=== PATIENT | female | born 1945 | race African-American/Black ===

== ENCOUNTER 2018-02-27 04:29 | Inpatient (IN) | payer MEDICARE, OTHER ==
[2018-02-27 04:37] LABS: POC GLUCOSE 149 mg/dL (70-99)
[2018-02-27] MEDS: ETOMIDATE 20 MG/10 ML VIAL. IV (04:40)
[2018-02-27] MEDS: SUCCINYLCHOLINE 200 MG/10 ML VIAL. IV (04:40)
[2018-02-27] MEDS ORDERED: PROPOFOL 50 ML IV (04:43)
[2018-02-27] MEDS: IPRATRPIUM/ALBUTEROL 0.5/2.5MG 3 ML NEBU. NEB ×4 (04:45→19:25)
[2018-02-27] MEDS: PROPOFOL 10 MG/ML (20ML) VIAL. IV (04:50)
[2018-02-27 05:00] LABS: BASO % 0 % (0-3); EOS % 0 % (0-3); HEMATOCRIT 43.4 % (36.0-47.0); LYMPH % 8 % (24-48); MEAN CORPUSCULAR HEMOGLOBIN 29 pg (25-35); MEAN CORPUSCULAR HGB CONC 30 g/dL (31-37); MEAN CORPUSCULAR VOLUME 98 fL (79-100); MONO # 0.4 x10^3/uL (0.0-1.1); MONO % 3 % (0-9); NEUT # 11.4 x10^3uL (1.8-7.7); NEUT % 89 % (31-73); PLATELET COUNT 185 x10^3/uL (140-400); RED BLOOD COUNT 4.44 x10^6/uL (3.50-5.40); RED CELL DISTRIBUTION WIDTH 15.7 % (11.5-14.5); WHITE BLOOD COUNT 12.9 x10^3/uL (4.0-11.0)
[2018-02-27 05:02] LABS: ADD MAN DIFF? YES
[2018-02-27 05:08] LABS: BILIRUBIN,URINE NEGATIVE (NEG); BLOOD UREA NITROGEN 15 mg/dL (7-20); BUN/CREATININE RATIO 19 (6-20); CALCIUM 8.9 mg/dL (8.5-10.1); CARBON DIOXIDE 40 mmol/L (21-32); CHLORIDE 105 mmol/L (98-107); CLARITY,URINE CLEAR; COLOR,URINE YELLOW; CREATININE 0.8 mg/dL (0.6-1.0); GFR 70.3; GLUCOSE 178 mg/dL (70-99); GLUCOSE,URINE NEGATIVE (NEG); NITRITE,URINE NEGATIVE (NEG); PH,URINE 5.5; POTASSIUM 4.8 mmol/L (3.5-5.1); PROTEIN,URINE 100 mg/dL (NEG-TRACE); SODIUM 143 mmol/L (136-145)
[2018-02-27 05:14] LABS: ALBUMIN 4.2 g/dL (3.4-5.0); ALBUMIN/GLOBULIN RATIO 0.8 (1.0-1.7); ALK PHOS 110 U/L (46-116); ALT (SGPT) 30 U/L (14-59); AST (SGOT) 29 U/L (15-37); TOTAL BILIRUBIN 1.2 mg/dL (0.2-1.0); TOTAL PROTEIN 9.5 g/dL (6.4-8.2)
[2018-02-27 05:15] LABS: AMORPHOUS SEDIMENT,UR PRESENT /HPF; BACTERIA,URINE 0 /HPF (0-FEW); RBC,URINE 0 /HPF (0-2); SQUAMOUS EPITHELIAL CELL,UR FEW /LPF; WBC,URINE OCC /HPF (0-4)
[2018-02-27 05:18] LABS: TROPONINI < 0.017 ng/mL (0.000-0.055)
[2018-02-27 05:19] LABS: NT-PRO BNP 289 pg/mL (0-124)
[2018-02-27] MEDS ORDERED: methylPREDNISolone SOD SUCC PF 125 MG/2 ML VIAL. IV (05:30)
[2018-02-27 05:36] LABS: BASE EXCESS COOX 8 mmol/L (-3-3); CARBON MONOXIDE 0.9 % (0.0-1.9); HCO3 COOX 37 mmol/L (21-28); METHEMOGLOBIN 0.5 % (0.0-1.9); PO2 COOX 265 mmHg (65-108); SAT O2 COOX 99 % (92-99); TOTAL HEMOGLOBIN 13.3 g/dL
[2018-02-27 05:39] LABS: % LYMPHS 12 % (24-48); % MONOS 1 % (0-10); % SEGS 87 % (35-66); PLT ESTIMATE ADEQUATE (ADEQUATE)
[2018-02-27 05:45] LABS: PCO2 COOX 76 mmHg (35-46)
[2018-02-27] MEDS ORDERED: ONDANSETRON PF 4 MG/2 ML VIAL. IV (05:45)
[2018-02-27] MEDS: IV NORMAL SALINE 1000ML BAG 1,000 ML IV (06:00)
[2018-02-27] MEDS: MIDAZOLAM 100mg/100ml NS BAG 100 ML IV (06:09)
[2018-02-27] MEDS: methylPREDNISolone SOD SUCC PF 125 MG/2 ML VIAL. IV ×3 (06:17→21:34)
[2018-02-27] MEDS ORDERED: ETOMIDATE 20 MG/10 ML VIAL. IV (07:00)
[2018-02-27] MEDS ORDERED: MIDAZOLAM HCL/PF 5 MG/5 ML VIAL. (07:00)
[2018-02-27] MEDS ORDERED: SUCCINYLCHOLINE 200 MG/10 ML VIAL. (07:01)
[2018-02-27 09:13] LABS: BASE EXCESS ABG 9 mmol/L (-3-3); HCO3 ABG 33 mmol/L (21-28); PCO2 ABG 39 mmHg (35-46); PH ABG 7.54 (7.35-7.45); PO2 ABG 72 mmHg (65-108); SAT O2 ABG 97 % (92-99)
[2018-02-27 09:17] LABS: FIO2 ABG 60
[2018-02-27 09:27] LABS: LACTIC ACID 2.5 mmol/L (0.4-2.0)
[2018-02-27] MEDS: PIPERACILLIN/TAZOBACTAM 4.5 GM in IV NORMAL SALINE 100ML 100 ML IV ×3 (11:12→23:51)
[2018-02-27] MEDS: PANTOPRAZOLE IV PUSH 40 MG VIAL. IVP (11:15)
[2018-02-27] MEDS: amLODIPine BESYLATE 5 MG TABLET PO (11:18)
[2018-02-27 13:08] LABS: PROCALCITONIN < 0.10 ng/mL (0.00-0.10)
[2018-02-27 13:44] LABS: MYCOPLASMA PATIENT NEGATIVE (NEGATIVE); NEGATIVE OBC MYCO NEG; POSITIVE OBC MYCO POS
[2018-02-27 14:58] LABS: LACTIC ACID < 0.3 mmol/L (0.4-2.0)
[2018-02-27 19:09] LABS: MRSA BY PCR Negative (Negative)
[2018-02-27] MEDS: CHLORHEXIDINE 0.12% 15 ML MOUTHWASH. MM (20:49)
[2018-02-28] MEDS: MIDAZOLAM 100mg/100ml NS BAG 100 ML IV (04:08)
[2018-02-28 05:43] LABS: ADD MAN DIFF? NO
[2018-02-28 05:50] LABS: BASO % 0 % (0-3); EOS % 0 % (0-3); HEMATOCRIT 37.9 % (36.0-47.0); HEMOGLOBIN 11.9 g/dL (12.0-15.5); LYMPH # 0.5 x10^3/uL (1.0-4.8); LYMPH % 5 % (24-48); MEAN CORPUSCULAR HEMOGLOBIN 29 pg (25-35); MEAN CORPUSCULAR HGB CONC 31 g/dL (31-37); MEAN CORPUSCULAR VOLUME 93 fL (79-100); MONO # 0.2 x10^3/uL (0.0-1.1); MONO % 2 % (0-9); NEUT # 8.7 x10^3uL (1.8-7.7); NEUT % 92 % (31-73); PLATELET COUNT 135 x10^3/uL (140-400); RED BLOOD COUNT 4.08 x10^6/uL (3.50-5.40); RED CELL DISTRIBUTION WIDTH 14.4 % (11.5-14.5); WHITE BLOOD COUNT 9.4 x10^3/uL (4.0-11.0)
[2018-02-28] MEDS: PIPERACILLIN/TAZOBACTAM 4.5 GM in IV NORMAL SALINE 100ML 100 ML IV ×4 (05:53→23:36)
[2018-02-28] MEDS: methylPREDNISolone SOD SUCC PF 125 MG/2 ML VIAL. IV ×3 (05:53→22:05)
[2018-02-28 06:21] LABS: ALBUMIN 3.1 g/dL (3.4-5.0); ALBUMIN/GLOBULIN RATIO 0.8 (1.0-1.7); ALK PHOS 78 U/L (46-116); ALT (SGPT) 23 U/L (14-59); ANION GAP 6 (6-14); AST (SGOT) 26 U/L (15-37); BLOOD UREA NITROGEN 20 mg/dL (7-20); BUN/CREATININE RATIO 15 (6-20); CALCIUM 8.7 mg/dL (8.5-10.1); CARBON DIOXIDE 32 mmol/L (21-32); CHLORIDE 105 mmol/L (98-107); CREATININE 1.3 mg/dL (0.6-1.0); GFR 48.6; GLUCOSE 227 mg/dL (70-99); POTASSIUM 3.6 mmol/L (3.5-5.1); SODIUM 143 mmol/L (136-145); TOTAL BILIRUBIN 2.1 mg/dL (0.2-1.0); TOTAL PROTEIN 6.8 g/dL (6.4-8.2)
[2018-02-28] MEDS: PANTOPRAZOLE IV PUSH 40 MG VIAL. IVP (07:49)
[2018-02-28] MEDS: CHLORHEXIDINE 0.12% 15 ML MOUTHWASH. MM ×2 (08:01→21:35)
[2018-02-28] MEDS: amLODIPine BESYLATE 10 MG TABLET PO (08:02)
[2018-02-28] MEDS: IPRATRPIUM/ALBUTEROL 0.5/2.5MG 3 ML NEBU. NEB ×4 (08:37→20:06)
[2018-02-28 08:57] LABS: BASE EXCESS ABG 7 mmol/L (-3-3); HCO3 ABG 32 mmol/L (21-28); PCO2 ABG 44 mmHg (35-46); PH ABG 7.47 (7.35-7.45); PO2 ABG 84 mmHg (65-108); SAT O2 ABG 97 % (92-99)
[2018-02-28 08:58] LABS: FIO2 ABG 40
[2018-02-28 09:58] LABS: SPECIMEN SOURCE Urine (.); STREP PNEUMO ANTIGEN Negative (Negative)
[2018-02-28] MEDS: FUROSEMIDE 40 MG/4 ML VIAL. IVP (11:12)
[2018-02-28 12:17] LABS: LEGIONELLA AG UR Negative (Negative)
[2018-02-28] MEDS: PROPOFOL 100 ML IV ×2 (13:22→17:05)
[2018-02-28] MEDS: INSULIN LISPRO 300 UNITS/3 ML INSULN.PEN. SQ ×3 (14:00→23:37)
[2018-02-28] MEDS ORDERED: DEXTROSE 50% 25 GM / 50ML DISP.SYRIN. IV (14:00)
[2018-02-28 14:37] LABS: POC GLUCOSE 143 mg/dL (70-99)
[2018-02-28 17:55] LABS: POC GLUCOSE 187 mg/dL (70-99)
[2018-02-28 23:37] LABS: POC GLUCOSE 228 mg/dL (70-99)
[2018-03-01 04:39] LABS: ADD MAN DIFF? NO
[2018-03-01 04:50] LABS: BASO % 0 % (0-3); EOS % 0 % (0-3); HEMOGLOBIN 12.2 g/dL (12.0-15.5); LYMPH # 0.5 x10^3/uL (1.0-4.8); LYMPH % 4 % (24-48); MEAN CORPUSCULAR HEMOGLOBIN 30 pg (25-35); MEAN CORPUSCULAR HGB CONC 32 g/dL (31-37); MEAN CORPUSCULAR VOLUME 93 fL (79-100); MONO # 0.4 x10^3/uL (0.0-1.1); MONO % 3 % (0-9); NEUT # 9.9 x10^3uL (1.8-7.7); NEUT % 92 % (31-73); PLATELET COUNT 140 x10^3/uL (140-400); RED BLOOD COUNT 4.11 x10^6/uL (3.50-5.40); RED CELL DISTRIBUTION WIDTH 14.8 % (11.5-14.5); WHITE BLOOD COUNT 10.7 x10^3/uL (4.0-11.0)
[2018-03-01] MEDS: methylPREDNISolone SOD SUCC PF 125 MG/2 ML VIAL. IV ×3 (05:09→21:22)
[2018-03-01] MEDS: PIPERACILLIN/TAZOBACTAM 4.5 GM in IV NORMAL SALINE 100ML 100 ML IV ×3 (05:09→17:27)
[2018-03-01] MEDS: INSULIN LISPRO 300 UNITS/3 ML INSULN.PEN. SQ ×3 (05:13→17:28)
[2018-03-01 05:25] LABS: ANION GAP 7 (6-14); BLOOD UREA NITROGEN 27 mg/dL (7-20); CALCIUM 8.9 mg/dL (8.5-10.1); CARBON DIOXIDE 32 mmol/L (21-32); CHLORIDE 103 mmol/L (98-107); CREATININE 1.5 mg/dL (0.6-1.0); GFR 41.2; GLUCOSE 244 mg/dL (70-99); POTASSIUM 3.2 mmol/L (3.5-5.1); SODIUM 142 mmol/L (136-145)
[2018-03-01] MEDS: IPRATRPIUM/ALBUTEROL 0.5/2.5MG 3 ML NEBU. NEB ×4 (07:39→19:42)
[2018-03-01 07:42] LABS: BASE EXCESS ABG 6 mmol/L (-3-3); HCO3 ABG 31 mmol/L (21-28); PCO2 ABG 45 mmHg (35-46); PH ABG 7.46 (7.35-7.45); PO2 ABG 92 mmHg (65-108); SAT O2 ABG 97 % (92-99)
[2018-03-01] MEDS: CHLORHEXIDINE 0.12% 15 ML MOUTHWASH. MM ×2 (08:06→21:22)
[2018-03-01] MEDS: PANTOPRAZOLE IV PUSH 40 MG VIAL. IVP (08:07)
[2018-03-01] MEDS: amLODIPine BESYLATE 10 MG TABLET PO (08:07)
[2018-03-01] MEDS: PROPOFOL 100 ML IV ×3 (08:56→18:51)
[2018-03-01 09:18] LABS: FIO2 ABG 40
[2018-03-01] MEDS ORDERED: POTASSIUM CHLORIDE 20MEQ 50 ML IV (10:00)
[2018-03-01] MEDS: POTASSIUM CHLORIDE 20 MEQ/15 ML ORAL LIQUID. PEG (10:08)
[2018-03-01 11:31] LABS: POC GLUCOSE 179 mg/dL (70-99)
[2018-03-01] MEDS: FUROSEMIDE 40 MG/4 ML VIAL. IVP (12:26)
[2018-03-01 13:15] LABS: POC GLUCOSE 186 mg/dL (70-99)
[2018-03-01 13:25] LABS: BASE EXCESS ABG 6 mmol/L (-3-3); HCO3 ABG 35 mmol/L (21-28); PH ABG 7.32 (7.35-7.45); PO2 ABG 73 mmHg (65-108); SAT O2 ABG 93 % (92-99)
[2018-03-01 13:28] LABS: PCO2 ABG 69 mmHg (35-46)
[2018-03-01 13:29] LABS: FIO2 ABG 40%
[2018-03-01 17:27] LABS: POC GLUCOSE 192 mg/dL (70-99)
[2018-03-02] MEDS: PIPERACILLIN/TAZOBACTAM 4.5 GM in IV NORMAL SALINE 100ML 100 ML IV ×5 (00:27→23:10)
[2018-03-02] MEDS: INSULIN LISPRO 300 UNITS/3 ML INSULN.PEN. SQ ×5 (00:28→23:10)
[2018-03-02] MEDS: PROPOFOL 100 ML IV ×4 (00:31→13:55)
[2018-03-02 00:37] LABS: POC GLUCOSE 207 mg/dL (70-99)
[2018-03-02 04:28] LABS: ADD MAN DIFF? NO
[2018-03-02 04:36] LABS: BASO % 0 % (0-3); EOS % 0 % (0-3); HEMATOCRIT 42.2 % (36.0-47.0); HEMOGLOBIN 13.4 g/dL (12.0-15.5); LYMPH # 0.4 x10^3/uL (1.0-4.8); LYMPH % 4 % (24-48); MEAN CORPUSCULAR HEMOGLOBIN 29 pg (25-35); MEAN CORPUSCULAR HGB CONC 32 g/dL (31-37); MEAN CORPUSCULAR VOLUME 92 fL (79-100); MONO # 0.5 x10^3/uL (0.0-1.1); MONO % 4 % (0-9); NEUT # 10.6 x10^3uL (1.8-7.7); NEUT % 92 % (31-73); PLATELET COUNT 154 x10^3/uL (140-400); RED BLOOD COUNT 4.58 x10^6/uL (3.50-5.40); RED CELL DISTRIBUTION WIDTH 15.3 % (11.5-14.5); WHITE BLOOD COUNT 11.5 x10^3/uL (4.0-11.0)
[2018-03-02 04:50] LABS: ALBUMIN 3.2 g/dL (3.4-5.0); ALBUMIN/GLOBULIN RATIO 0.8 (1.0-1.7); ALK PHOS 78 U/L (46-116); ALT (SGPT) 21 U/L (14-59); ANION GAP 7 (6-14); AST (SGOT) 18 U/L (15-37); BLOOD UREA NITROGEN 33 mg/dL (7-20); BUN/CREATININE RATIO 24 (6-20); CARBON DIOXIDE 34 mmol/L (21-32); CHLORIDE 103 mmol/L (98-107); CREATININE 1.4 mg/dL (0.6-1.0); GFR 44.6; GLUCOSE 223 mg/dL (70-99); POTASSIUM 3.1 mmol/L (3.5-5.1); SODIUM 144 mmol/L (136-145); TOTAL PROTEIN 7.2 g/dL (6.4-8.2)
[2018-03-02] MEDS: methylPREDNISolone SOD SUCC PF 125 MG/2 ML VIAL. IV (06:01)
[2018-03-02] MEDS: IPRATRPIUM/ALBUTEROL 0.5/2.5MG 3 ML NEBU. NEB ×4 (07:25→20:00)
[2018-03-02] MEDS: PANTOPRAZOLE IV PUSH 40 MG VIAL. IVP (07:56)
[2018-03-02] MEDS: amLODIPine BESYLATE 10 MG TABLET PO (07:56)
[2018-03-02] MEDS: POTASSIUM CHLORIDE 20 MEQ/15 ML ORAL LIQUID. PEG ×2 (07:56→15:29)
[2018-03-02] MEDS: CHLORHEXIDINE 0.12% 15 ML MOUTHWASH. MM ×2 (07:58→20:25)
[2018-03-02 08:16] LABS: MAGNESIUM 2.3 mg/dL (1.8-2.4)
[2018-03-02 08:23] LABS: POC GLUCOSE 162 mg/dL (70-99)
[2018-03-02 08:48] LABS: BASE EXCESS ABG 6 mmol/L (-3-3); FIO2 ABG 40; HCO3 ABG 30 mmol/L (21-28); PCO2 ABG 41 mmHg (35-46); PH ABG 7.48 (7.35-7.45); PO2 ABG 85 mmHg (65-108); SAT O2 ABG 96 % (92-99)
[2018-03-02 09:39] LABS: BASE EXCESS ABG 5 mmol/L (-3-3); HCO3 ABG 34 mmol/L (21-28); PH ABG 7.32 (7.35-7.45); PO2 ABG 68 mmHg (65-108); SAT O2 ABG 91 % (92-99)
[2018-03-02 10:55] LABS: FIO2 ABG 40; PCO2 ABG 68 mmHg (35-46)
[2018-03-02 12:28] LABS: POC GLUCOSE 186 mg/dL (70-99)
[2018-03-02] MEDS: FUROSEMIDE 40 MG/4 ML VIAL. IVP (13:17)
[2018-03-02] MEDS: methylPREDNISolone SOD SUCC PF 40 MG/ML VIAL. IV ×2 (13:18→21:28)
[2018-03-02 15:05] LABS: BASE EXCESS ABG 5 mmol/L (-3-3); HCO3 ABG 32 mmol/L (21-28); PCO2 ABG 52 mmHg (35-46); PO2 ABG 88 mmHg (65-108); SAT O2 ABG 97 % (92-99)
[2018-03-02 15:13] LABS: FIO2 ABG 40
[2018-03-02] MEDS: fentaNYL PF VIAL 100 MCG/2 ML VIAL IV ×2 (15:57→21:46)
[2018-03-02] MEDS ORDERED: fentaNYL PF VIAL 100 MCG/2 ML VIAL IV (16:00)
[2018-03-02 16:34] LABS: POC GLUCOSE 146 mg/dL (70-99)
[2018-03-02] MEDS: hydrALAZINE 20 MG/ML VIAL. IVP (23:10)
[2018-03-02 23:15] LABS: POC GLUCOSE 147 mg/dL (70-99)
[2018-03-03] MEDS: methylPREDNISolone SOD SUCC PF 40 MG/ML VIAL. IV ×3 (05:41→21:40)
[2018-03-03] MEDS: PIPERACILLIN/TAZOBACTAM 4.5 GM in IV NORMAL SALINE 100ML 100 ML IV ×3 (05:42→17:45)
[2018-03-03] MEDS: INSULIN LISPRO 300 UNITS/3 ML INSULN.PEN. SQ ×3 (05:45→17:46)
[2018-03-03 05:52] LABS: POC GLUCOSE 151 mg/dL (70-99)
[2018-03-03] MEDS: fentaNYL PF VIAL 100 MCG/2 ML VIAL IV (05:53)
[2018-03-03] MEDS: CHLORHEXIDINE 0.12% 15 ML MOUTHWASH. MM (07:21)
[2018-03-03] MEDS: hydrALAZINE 20 MG/ML VIAL. IVP ×2 (07:41→13:11)
[2018-03-03] MEDS: IPRATRPIUM/ALBUTEROL 0.5/2.5MG 3 ML NEBU. NEB ×4 (07:56→20:24)
[2018-03-03] MEDS: amLODIPine BESYLATE 10 MG TABLET PO (08:10)
[2018-03-03] MEDS: PANTOPRAZOLE IV PUSH 40 MG VIAL. IVP (08:10)
[2018-03-03 11:36] LABS: ANION GAP 8 (6-14); BLOOD UREA NITROGEN 41 mg/dL (7-20); CALCIUM 8.5 mg/dL (8.5-10.1); CARBON DIOXIDE 37 mmol/L (21-32); CHLORIDE 102 mmol/L (98-107); CREATININE 1.3 mg/dL (0.6-1.0); GFR 48.6; GLUCOSE 175 mg/dL (70-99); MAGNESIUM 2.5 mg/dL (1.8-2.4); POTASSIUM 3.2 mmol/L (3.5-5.1); SODIUM 147 mmol/L (136-145)
[2018-03-03] MEDS: POTASSIUM CHLORIDE 20 MEQ/15 ML ORAL LIQUID. PEG (13:45)
[2018-03-03 17:48] LABS: POC GLUCOSE 148 mg/dL (70-99)
[2018-03-03] MEDS: ONDANSETRON PF 4 MG/2 ML VIAL. IV ×2 (18:09→22:35)
[2018-03-03] MEDS: LACTOBACILLUS RHAMNOSUS GG 1 CAPSULE. PO (21:00)
[2018-03-04] MEDS: PIPERACILLIN/TAZOBACTAM 4.5 GM in IV NORMAL SALINE 100ML 100 ML IV ×4 (00:21→18:02)
[2018-03-04 00:30] LABS: POC GLUCOSE 182 mg/dL (70-99)
[2018-03-04] MEDS: IV NORMAL SALINE 1000ML BAG 1,000 ML IV ×2 (02:00→09:08)
[2018-03-04 05:42] LABS: ANION GAP 6 (6-14); BLOOD UREA NITROGEN 59 mg/dL (7-20); CALCIUM 8.3 mg/dL (8.5-10.1); CARBON DIOXIDE 37 mmol/L (21-32); CHLORIDE 104 mmol/L (98-107); CREATININE 1.6 mg/dL (0.6-1.0); GFR 38.2; GLUCOSE 175 mg/dL (70-99); POTASSIUM 3.7 mmol/L (3.5-5.1); SODIUM 147 mmol/L (136-145)
[2018-03-04] MEDS: INSULIN LISPRO 300 UNITS/3 ML INSULN.PEN. SQ ×4 (06:00→17:40)
[2018-03-04 06:26] LABS: POC GLUCOSE 118 mg/dL (70-99)
[2018-03-04] MEDS: methylPREDNISolone SOD SUCC PF 40 MG/ML VIAL. IV ×3 (06:27→22:58)
[2018-03-04] MEDS: amLODIPine BESYLATE 10 MG TABLET PO (07:10)
[2018-03-04] MEDS: LACTOBACILLUS RHAMNOSUS GG 1 CAPSULE. PO ×2 (07:10→21:51)
[2018-03-04] MEDS: IPRATRPIUM/ALBUTEROL 0.5/2.5MG 3 ML NEBU. NEB ×5 (07:47→20:19)
[2018-03-04 08:02] LABS: BASE EXCESS ABG 8 mmol/L (-3-3); HCO3 ABG 44 mmol/L (21-28); PO2 ABG 125 mmHg (65-108); SAT O2 ABG 98 % (92-99)
[2018-03-04 08:12] LABS: PH ABG 7.11 (7.35-7.45)
[2018-03-04 08:14] LABS: FIO2 ABG 70; PCO2 ABG 140 mmHg (35-46)
[2018-03-04] MEDS: PANTOPRAZOLE IV PUSH 40 MG VIAL. IVP (09:08)
[2018-03-04 10:45] LABS: BASE EXCESS ABG 3 mmol/L (-3-3); HCO3 ABG 33 mmol/L (21-28); PH ABG 7.25 (7.35-7.45); PO2 ABG 79 mmHg (65-108); SAT O2 ABG 95 % (92-99)
[2018-03-04 10:49] LABS: FIO2 ABG 40; PCO2 ABG 76 mmHg (35-46)
[2018-03-04] MEDS: AMINO AC 3%/ELECTROLYTE/GLYCER 1,000 ML IV ×2 (11:00→23:30)
[2018-03-04] MEDS: IV 1/2 NORMAL SALINE 1,000 ML IV (11:00)
[2018-03-04 12:57] LABS: POC GLUCOSE 127 mg/dL (70-99)
[2018-03-04 16:09] LABS: ANION GAP 7 (6-14); BLOOD UREA NITROGEN 71 mg/dL (7-20); CALCIUM 8.1 mg/dL (8.5-10.1); CARBON DIOXIDE 36 mmol/L (21-32); CHLORIDE 105 mmol/L (98-107); CREATININE 1.9 mg/dL (0.6-1.0); GFR 31.4; GLUCOSE 136 mg/dL (70-99); SODIUM 148 mmol/L (136-145)
[2018-03-04] MEDS: ONDANSETRON PF 4 MG/2 ML VIAL. IV (16:27)
[2018-03-04] MEDS: IV DEXTROSE 5% 1,000 ML IV (18:02)
[2018-03-04 20:42] LABS: BASE EXCESS ABG 8 mmol/L (-3-3); HCO3 ABG 36 mmol/L (21-28); PO2 ABG 75 mmHg (65-108); SAT O2 ABG 95 % (92-99)
[2018-03-04 20:43] LABS: FIO2 ABG 40; PCO2 ABG 60 mmHg (35-46); PH ABG 7.39 (7.35-7.45)
[2018-03-05] MEDS: ONDANSETRON PF 4 MG/2 ML VIAL. IV (00:08)
[2018-03-05] MEDS: PIPERACILLIN/TAZOBACTAM 4.5 GM in IV NORMAL SALINE 100ML 100 ML IV ×4 (00:15→16:55)
[2018-03-05 00:39] LABS: POC GLUCOSE 149 mg/dL (70-99)
[2018-03-05] MEDS: INSULIN LISPRO 300 UNITS/3 ML INSULN.PEN. SQ ×4 (05:59→17:47)
[2018-03-05 06:01] LABS: POC GLUCOSE 147 mg/dL (70-99)
[2018-03-05] MEDS: methylPREDNISolone SOD SUCC PF 40 MG/ML VIAL. IV ×3 (06:22→22:39)
[2018-03-05] MEDS: IV DEXTROSE 5% 1,000 ML IV ×2 (07:53→20:40)
[2018-03-05] MEDS: PANTOPRAZOLE IV PUSH 40 MG VIAL. IVP (07:53)
[2018-03-05] MEDS: amLODIPine BESYLATE 10 MG TABLET PO (09:00)
[2018-03-05] MEDS: LACTOBACILLUS RHAMNOSUS GG 1 CAPSULE. PO ×2 (09:00→22:40)
[2018-03-05] MEDS: IPRATRPIUM/ALBUTEROL 0.5/2.5MG 3 ML NEBU. NEB ×4 (09:01→19:58)
[2018-03-05 09:19] LABS: BASE EXCESS ABG 9 mmol/L (-3-3); HCO3 ABG 38 mmol/L (21-28); PH ABG 7.33 (7.35-7.45); PO2 ABG 82 mmHg (65-108); SAT O2 ABG 96 % (92-99)
[2018-03-05 09:23] LABS: FIO2 ABG 40; PCO2 ABG 75 mmHg (35-46)
[2018-03-05] MEDS: fentaNYL PF VIAL 100 MCG/2 ML VIAL IV ×2 (09:50→16:56)
[2018-03-05] MEDS: AMINO AC 3%/ELECTROLYTE/GLYCER 1,000 ML IV (11:52)
[2018-03-05 11:55] LABS: POC GLUCOSE 162 mg/dL (70-99)
[2018-03-05 12:11] LABS: HEMATOCRIT 48.3 % (36.0-47.0); HEMOGLOBIN 15.1 g/dL (12.0-15.5); MEAN CORPUSCULAR HEMOGLOBIN 29 pg (25-35); MEAN CORPUSCULAR HGB CONC 31 g/dL (31-37); MEAN CORPUSCULAR VOLUME 94 fL (79-100); PLATELET COUNT 166 x10^3/uL (140-400); RED BLOOD COUNT 5.15 x10^6/uL (3.50-5.40); RED CELL DISTRIBUTION WIDTH 15.4 % (11.5-14.5); WHITE BLOOD COUNT 21.1 x10^3/uL (4.0-11.0)
[2018-03-05 12:33] LABS: ANION GAP 4 (6-14); BLOOD UREA NITROGEN 68 mg/dL (7-20); CALCIUM 7.8 mg/dL (8.5-10.1); CARBON DIOXIDE 41 mmol/L (21-32); CHLORIDE 105 mmol/L (98-107); CREATININE 1.9 mg/dL (0.6-1.0); GFR 31.4; GLUCOSE 170 mg/dL (70-99); POTASSIUM 3.6 mmol/L (3.5-5.1); SODIUM 150 mmol/L (136-145)
[2018-03-05 17:33] LABS: POC GLUCOSE 106 mg/dL (70-99)
[2018-03-06] MEDS: ALBUTEROL SULFATE 2.5 MG/3 ML NEBU. NEB (01:15)
[2018-03-06 01:38] LABS: BASE EXCESS ABG 5 mmol/L (-3-3); HCO3 ABG 33 mmol/L (21-28); PO2 ABG 69 mmHg (65-108); SAT O2 ABG 93 % (92-99)
[2018-03-06] MEDS: MIDAZOLAM 100mg/100ml NS BAG 100 ML IV ×2 (01:40→12:39)
[2018-03-06] MEDS: PIPERACILLIN/TAZOBACTAM 4.5 GM in IV NORMAL SALINE 100ML 100 ML IV ×2 (02:40→06:03)
[2018-03-06] MEDS: AMINO AC 3%/ELECTROLYTE/GLYCER 1,000 ML IV ×3 (02:40→21:40)
[2018-03-06 02:51] LABS: POC GLUCOSE 179 mg/dL (70-99)
[2018-03-06 03:36] LABS: FIO2 ABG 60; PCO2 ABG 69 mmHg (35-46)
[2018-03-06] MEDS: methylPREDNISolone SOD SUCC PF 40 MG/ML VIAL. IV ×3 (05:59→21:40)
[2018-03-06] MEDS: INSULIN LISPRO 300 UNITS/3 ML INSULN.PEN. SQ ×4 (06:00→18:00)
[2018-03-06 06:15] LABS: POC GLUCOSE 122 mg/dL (70-99)
[2018-03-06] MEDS: IPRATRPIUM/ALBUTEROL 0.5/2.5MG 3 ML NEBU. NEB ×4 (07:14→19:27)
[2018-03-06] MEDS: CHLORHEXIDINE 0.12% 15 ML MOUTHWASH. MM ×2 (08:13→21:18)
[2018-03-06] MEDS: IV DEXTROSE 5% 1,000 ML IV ×2 (08:14→21:40)
[2018-03-06] MEDS: PANTOPRAZOLE IV PUSH 40 MG VIAL. IVP (08:14)
[2018-03-06] MEDS: LACTOBACILLUS RHAMNOSUS GG 1 CAPSULE. PO ×2 (08:14→21:00)
[2018-03-06] MEDS: amLODIPine BESYLATE 10 MG TABLET PO (08:14)
[2018-03-06 09:22] LABS: BASE EXCESS ABG 11 mmol/L (-3-3); HCO3 ABG 34 mmol/L (21-28); PCO2 ABG 38 mmHg (35-46); SAT O2 ABG 90 % (92-99)
[2018-03-06 09:27] LABS: PH ABG 7.57 (7.35-7.45); PO2 ABG 47 mmHg (65-108)
[2018-03-06 09:28] LABS: FIO2 ABG 60
[2018-03-06 10:59] LABS: ANION GAP 5 (6-14); BLOOD UREA NITROGEN 72 mg/dL (7-20); CALCIUM 8.1 mg/dL (8.5-10.1); CARBON DIOXIDE 36 mmol/L (21-32); CHLORIDE 106 mmol/L (98-107); GFR 29.6; GLUCOSE 180 mg/dL (70-99); POTASSIUM 3.7 mmol/L (3.5-5.1); SODIUM 147 mmol/L (136-145)
[2018-03-06 12:34] LABS: BASE EXCESS ABG 11 mmol/L (-3-3); HCO3 ABG 33 mmol/L (21-28); PCO2 ABG 35 mmHg (35-46); PO2 ABG 72 mmHg (65-108); SAT O2 ABG 96 % (92-99)
[2018-03-06 12:36] LABS: POC GLUCOSE 166 mg/dL (70-99)
[2018-03-06 12:39] LABS: FIO2 ABG 80
[2018-03-06] MEDS: PIPERACILLIN/TAZOBACTAM 3.375 GM in IV NORMAL SALINE 50ML 50 ML IV ×2 (12:39→18:18)
[2018-03-06 18:21] LABS: POC GLUCOSE 124 mg/dL (70-99)
[2018-03-06] MEDS: fentaNYL PF VIAL 100 MCG/2 ML VIAL IV (22:59)
[2018-03-07 00:13] LABS: POC GLUCOSE 161 mg/dL (70-99)
[2018-03-07] MEDS: PIPERACILLIN/TAZOBACTAM 3.375 GM in IV NORMAL SALINE 50ML 50 ML IV ×4 (00:13→17:33)
[2018-03-07] MEDS: INSULIN LISPRO 300 UNITS/3 ML INSULN.PEN. SQ ×4 (00:14→17:34)
[2018-03-07] MEDS: MIDAZOLAM 100mg/100ml NS BAG 100 ML IV ×2 (03:21→22:39)
[2018-03-07] MEDS: methylPREDNISolone SOD SUCC PF 40 MG/ML VIAL. IV ×3 (06:00→22:49)
[2018-03-07 06:06] LABS: POC GLUCOSE 110 mg/dL (70-99)
[2018-03-07] MEDS: IPRATRPIUM/ALBUTEROL 0.5/2.5MG 3 ML NEBU. NEB ×4 (07:50→19:51)
[2018-03-07 08:06] LABS: BASE EXCESS ABG 8 mmol/L (-3-3); HCO3 ABG 32 mmol/L (21-28); PCO2 ABG 39 mmHg (35-46); PH ABG 7.53 (7.35-7.45); PO2 ABG 66 mmHg (65-108); SAT O2 ABG 94 % (92-99)
[2018-03-07 08:07] LABS: FIO2 ABG 60
[2018-03-07] MEDS: amLODIPine BESYLATE 10 MG TABLET PO (09:00)
[2018-03-07] MEDS: LACTOBACILLUS RHAMNOSUS GG 1 CAPSULE. PO ×2 (09:00→21:00)
[2018-03-07] MEDS: PANTOPRAZOLE IV PUSH 40 MG VIAL. IVP (09:28)
[2018-03-07] MEDS: CHLORHEXIDINE 0.12% 15 ML MOUTHWASH. MM ×2 (09:28→22:38)
[2018-03-07 10:46] LABS: ANION GAP 9 (6-14); BLOOD UREA NITROGEN 67 mg/dL (7-20); CALCIUM 8.8 mg/dL (8.5-10.1); CARBON DIOXIDE 33 mmol/L (21-32); CHLORIDE 105 mmol/L (98-107); CREATININE 1.7 mg/dL (0.6-1.0); GFR 35.6; GLUCOSE 162 mg/dL (70-99); POTASSIUM 3.8 mmol/L (3.5-5.1); SODIUM 147 mmol/L (136-145)
[2018-03-07] MEDS ORDERED: MIDAZOLAM HCL/PF 5 MG/5 ML VIAL. (12:17)
[2018-03-07] MEDS: IV DEXTROSE 5% 1,000 ML IV (12:40)
[2018-03-07] MEDS: AMINO AC 3%/ELECTROLYTE/GLYCER 1,000 ML IV (12:49)
[2018-03-07] MEDS: hydrALAZINE 20 MG/ML VIAL. IVP (15:05)
[2018-03-07 17:35] LABS: POC GLUCOSE 140 mg/dL (70-99)
[2018-03-08] MEDS: PIPERACILLIN/TAZOBACTAM 3.375 GM in IV NORMAL SALINE 50ML 50 ML IV ×5 (00:59→23:32)
[2018-03-08] MEDS: AMINO AC 3%/ELECTROLYTE/GLYCER 1,000 ML IV ×2 (01:00→15:21)
[2018-03-08] MEDS: INSULIN LISPRO 300 UNITS/3 ML INSULN.PEN. SQ ×5 (01:09→23:32)
[2018-03-08 01:11] LABS: POC GLUCOSE 151 mg/dL (70-99)
[2018-03-08] MEDS: IV DEXTROSE 5% 1,000 ML IV (02:00)
[2018-03-08 05:23] LABS: ANION GAP 7 (6-14); BLOOD UREA NITROGEN 60 mg/dL (7-20); CALCIUM 8.6 mg/dL (8.5-10.1); CARBON DIOXIDE 32 mmol/L (21-32); CHLORIDE 107 mmol/L (98-107); CREATININE 1.3 mg/dL (0.6-1.0); GFR 48.6; GLUCOSE 164 mg/dL (70-99); POTASSIUM 4.1 mmol/L (3.5-5.1); SODIUM 146 mmol/L (136-145)
[2018-03-08] MEDS: methylPREDNISolone SOD SUCC PF 40 MG/ML VIAL. IV ×3 (06:25→21:30)
[2018-03-08 06:33] LABS: POC GLUCOSE 123 mg/dL (70-99)
[2018-03-08] MEDS ORDERED: fentaNYL PF VIAL 100 MCG/2 ML VIAL IV ×2 (07:30)
[2018-03-08] MEDS ORDERED: MORPHINE SULFATE 4 MG/ML DISP.SYRIN. IV (07:30)
[2018-03-08] MEDS ORDERED: PROCHLORPERAZINE 10 MG/2 ML VIAL. IV (07:30)
[2018-03-08] MEDS ORDERED: LIDOCAINE 1% PF 2 ML VIAL. ID (07:30)
[2018-03-08] MEDS: IPRATRPIUM/ALBUTEROL 0.5/2.5MG 3 ML NEBU. NEB ×4 (08:20→20:05)
[2018-03-08 08:25] LABS: BASE EXCESS ABG 6 mmol/L (-3-3); HCO3 ABG 31 mmol/L (21-28); PCO2 ABG 46 mmHg (35-46); PH ABG 7.44 (7.35-7.45); PO2 ABG 82 mmHg (65-108); SAT O2 ABG 96 % (92-99)
[2018-03-08] MEDS: IV RINGERS,LACTATED 1000ML 1,000 ML IV (08:26)
[2018-03-08] MEDS: PANTOPRAZOLE IV PUSH 40 MG VIAL. IVP (08:26)
[2018-03-08] MEDS: amLODIPine BESYLATE 10 MG TABLET PO (08:31)
[2018-03-08] MEDS: CHLORHEXIDINE 0.12% 15 ML MOUTHWASH. MM ×2 (08:31→21:31)
[2018-03-08] MEDS: LACTOBACILLUS RHAMNOSUS GG 1 CAPSULE. PO (08:31)
[2018-03-08 08:44] LABS: POC GLUCOSE 148 mg/dL (70-99)
[2018-03-08] MEDS ORDERED: ROCURONIUM 50 MG/5 ML VIAL. ×2 (08:48→10:12)
[2018-03-08] MEDS ORDERED: MIDAZOLAM HCL/PF 2 MG/2 ML VIAL. (08:48)
[2018-03-08] MEDS ORDERED: fentaNYL PF VIAL 100 MCG/2 ML VIAL (08:48)
[2018-03-08 08:57] LABS: FIO2 ABG 60
[2018-03-08 18:33] LABS: POC GLUCOSE 157 mg/dL (70-99)
[2018-03-08 18:33] LABS: POC GLUCOSE 164 mg/dL (70-99)
[2018-03-08] MEDS: fentaNYL PF VIAL 100 MCG/2 ML VIAL IV (20:26)
[2018-03-08 23:39] LABS: POC GLUCOSE 134 mg/dL (70-99)
[2018-03-09] MEDS: hydrALAZINE 20 MG/ML VIAL. IVP ×2 (02:25→07:27)
[2018-03-09] MEDS: fentaNYL PF VIAL 100 MCG/2 ML VIAL IV ×4 (02:58→22:17)
[2018-03-09 05:45] LABS: POC GLUCOSE 143 mg/dL (70-99)
[2018-03-09] MEDS: PIPERACILLIN/TAZOBACTAM 3.375 GM in IV NORMAL SALINE 50ML 50 ML IV ×4 (05:45→23:27)
[2018-03-09] MEDS: INSULIN LISPRO 300 UNITS/3 ML INSULN.PEN. SQ ×3 (05:48→17:51)
[2018-03-09] MEDS: methylPREDNISolone SOD SUCC PF 40 MG/ML VIAL. IV ×3 (05:48→21:05)
[2018-03-09 06:02] LABS: ANION GAP 7 (6-14); BLOOD UREA NITROGEN 52 mg/dL (7-20); CALCIUM 8.9 mg/dL (8.5-10.1); CARBON DIOXIDE 31 mmol/L (21-32); CHLORIDE 108 mmol/L (98-107); CREATININE 1.2 mg/dL (0.6-1.0); GFR 53.3; GLUCOSE 161 mg/dL (70-99); POTASSIUM 4.5 mmol/L (3.5-5.1); SODIUM 146 mmol/L (136-145)
[2018-03-09 06:10] LABS: BASO % 0 % (0-3); EOS # 0.2 x10^3/uL (0.0-0.7); EOS % 1 % (0-3); HEMATOCRIT 42.1 % (36.0-47.0); HEMOGLOBIN 13.3 g/dL (12.0-15.5); LYMPH # 0.7 x10^3/uL (1.0-4.8); LYMPH % 3 % (24-48); MEAN CORPUSCULAR HEMOGLOBIN 29 pg (25-35); MEAN CORPUSCULAR HGB CONC 32 g/dL (31-37); MEAN CORPUSCULAR VOLUME 91 fL (79-100); MONO # 1.2 x10^3/uL (0.0-1.1); MONO % 4 % (0-9); NEUT # 25.7 x10^3uL (1.8-7.7); NEUT % 92 % (31-73); PLATELET COUNT 172 x10^3/uL (140-400); RED BLOOD COUNT 4.62 x10^6/uL (3.50-5.40); RED CELL DISTRIBUTION WIDTH 14.6 % (11.5-14.5); WHITE BLOOD COUNT 27.8 x10^3/uL (4.0-11.0)
[2018-03-09 06:17] LABS: ADD MAN DIFF? YES
[2018-03-09] MEDS: PANTOPRAZOLE IV PUSH 40 MG VIAL. IVP (07:14)
[2018-03-09] MEDS: IPRATRPIUM/ALBUTEROL 0.5/2.5MG 3 ML NEBU. NEB ×4 (07:17→19:54)
[2018-03-09] MEDS: AMINO AC 3%/ELECTROLYTE/GLYCER 1,000 ML IV ×2 (07:18→21:05)
[2018-03-09 07:31] LABS: BASE EXCESS ABG 4 mmol/L (-3-3); HCO3 ABG 29 mmol/L (21-28); PCO2 ABG 47 mmHg (35-46); PH ABG 7.41 (7.35-7.45); PO2 ABG 69 mmHg (65-108); SAT O2 ABG 93 % (92-99)
[2018-03-09 07:34] LABS: % BANDS 4 % (0-9); % LYMPHS 2 % (24-48); % MONOS 2 % (0-10); % SEGS 92 % (35-66)
[2018-03-09 07:35] LABS: PLT ESTIMATE ADEQUATE (ADEQUATE)
[2018-03-09 08:05] LABS: FIO2 ABG 50
[2018-03-09] MEDS: CHLORHEXIDINE 0.12% 15 ML MOUTHWASH. MM ×2 (09:39→21:05)
[2018-03-09] MEDS: amLODIPine BESYLATE 10 MG TABLET PO (09:41)
[2018-03-09 11:46] LABS: INR 1.1 (0.8-1.1); PROTHROMBIN TIME PATIENT 13.8 SEC (11.7-14.0)
[2018-03-09] MEDS: PROPOFOL 100 ML IV ×3 (11:57→23:27)
[2018-03-09] MEDS: ONDANSETRON PF 4 MG/2 ML VIAL. IV (12:10)
[2018-03-09] MEDS: ALBUTEROL SULFATE 2.5 MG/3 ML NEBU. NEB (14:02)
[2018-03-09 17:53] LABS: POC GLUCOSE 120 mg/dL (70-99)
[2018-03-09 18:20] LABS: POC GLUCOSE 152 mg/dL (70-99)
[2018-03-09 23:39] LABS: POC GLUCOSE 145 mg/dL (70-99)
[2018-03-10] MEDS: fentaNYL PF VIAL 100 MCG/2 ML VIAL IV ×2 (01:50→20:25)
[2018-03-10] MEDS: PROPOFOL 100 ML IV ×2 (04:11→10:21)
[2018-03-10] MEDS: PIPERACILLIN/TAZOBACTAM 3.375 GM in IV NORMAL SALINE 50ML 50 ML IV ×3 (05:32→17:48)
[2018-03-10] MEDS: methylPREDNISolone SOD SUCC PF 40 MG/ML VIAL. IV ×3 (05:32→21:31)
[2018-03-10 05:35] LABS: POC GLUCOSE 126 mg/dL (70-99)
[2018-03-10 05:52] LABS: ANION GAP 6 (6-14); BLOOD UREA NITROGEN 47 mg/dL (7-20); CALCIUM 8.4 mg/dL (8.5-10.1); CARBON DIOXIDE 33 mmol/L (21-32); CHLORIDE 109 mmol/L (98-107); CREATININE 1.2 mg/dL (0.6-1.0); GFR 53.3; GLUCOSE 140 mg/dL (70-99); POTASSIUM 4.2 mmol/L (3.5-5.1); SODIUM 148 mmol/L (136-145)
[2018-03-10] MEDS: INSULIN LISPRO 300 UNITS/3 ML INSULN.PEN. SQ ×4 (06:00→17:44)
[2018-03-10] MEDS: IPRATRPIUM/ALBUTEROL 0.5/2.5MG 3 ML NEBU. NEB ×4 (08:10→19:45)
[2018-03-10] MEDS: amLODIPine BESYLATE 10 MG TABLET PO (09:00)
[2018-03-10] MEDS: PANTOPRAZOLE IV PUSH 40 MG VIAL. IVP (09:19)
[2018-03-10] MEDS: CHLORHEXIDINE 0.12% 15 ML MOUTHWASH. MM ×2 (09:24→20:24)
[2018-03-10] MEDS: AMINO AC 3%/ELECTROLYTE/GLYCER 1,000 ML IV ×2 (10:20→17:00)
[2018-03-10] MEDS: TPN PER PHARMACY MC (14:35)
[2018-03-10 16:52] LABS: POC GLUCOSE 112 mg/dL (70-99)
[2018-03-10] MEDS: DEXTROSE 70% IV (21:33)
[2018-03-10] MEDS: [UNRECOGNIZED DRUG - OTHER] IV (21:33)
[2018-03-10] MEDS: AMINO ACIDS IV (21:33)
[2018-03-10] MEDS: TOTAL PARENTERAL NUTRITION IV (21:33)
[2018-03-11] MEDS: PIPERACILLIN/TAZOBACTAM 3.375 GM in IV NORMAL SALINE 50ML 50 ML IV ×2 (00:24→05:44)
[2018-03-11] MEDS: INSULIN LISPRO 300 UNITS/3 ML INSULN.PEN. SQ ×5 (00:26→23:41)
[2018-03-11 00:30] LABS: POC GLUCOSE 165 mg/dL (70-99)
[2018-03-11 05:35] LABS: POC GLUCOSE 178 mg/dL (70-99)
[2018-03-11] MEDS: methylPREDNISolone SOD SUCC PF 40 MG/ML VIAL. IV ×3 (05:45→17:43)
[2018-03-11 05:56] LABS: ANION GAP 5 (6-14); BLOOD UREA NITROGEN 45 mg/dL (7-20); CALCIUM 8.1 mg/dL (8.5-10.1); CARBON DIOXIDE 31 mmol/L (21-32); CHLORIDE 107 mmol/L (98-107); CREATININE 1.1 mg/dL (0.6-1.0); GFR 58.9; GLUCOSE 179 mg/dL (70-99); POTASSIUM 4.6 mmol/L (3.5-5.1); SODIUM 143 mmol/L (136-145)
[2018-03-11 06:00] LABS: PHOSPHORUS 3.9 mg/dL (2.6-4.7)
[2018-03-11 06:00] LABS: MAGNESIUM 2.6 mg/dL (1.8-2.4); TRIGLYCERIDES 172 mg/dL (0-150)
[2018-03-11] MEDS: IPRATRPIUM/ALBUTEROL 0.5/2.5MG 3 ML NEBU. NEB ×4 (08:08→19:42)
[2018-03-11] MEDS: amLODIPine BESYLATE 10 MG TABLET PO (08:39)
[2018-03-11] MEDS: PANTOPRAZOLE IV PUSH 40 MG VIAL. IVP (08:39)
[2018-03-11] MEDS: CHLORHEXIDINE 0.12% 15 ML MOUTHWASH. MM ×2 (08:39→21:21)
[2018-03-11 09:50] LABS: BASE EXCESS ABG 3 mmol/L (-3-3); FIO2 ABG 40; HCO3 ABG 29 mmol/L (21-28); PCO2 ABG 50 mmHg (35-46); PH ABG 7.37 (7.35-7.45); PO2 ABG 84 mmHg (65-108); SAT O2 ABG 95 % (92-99)
[2018-03-11] MEDS: TPN PER PHARMACY MC (10:42)
[2018-03-11] MEDS: fentaNYL PF VIAL 100 MCG/2 ML VIAL IV ×2 (12:55→17:44)
[2018-03-11 12:56] LABS: HEMATOCRIT 36.9 % (36.0-47.0); HEMOGLOBIN 11.9 g/dL (12.0-15.5); MEAN CORPUSCULAR HEMOGLOBIN 29 pg (25-35); MEAN CORPUSCULAR HGB CONC 32 g/dL (31-37); MEAN CORPUSCULAR VOLUME 91 fL (79-100); RED BLOOD COUNT 4.06 x10^6/uL (3.50-5.40); RED CELL DISTRIBUTION WIDTH 14.3 % (11.5-14.5); WHITE BLOOD COUNT 19.6 x10^3/uL (4.0-11.0)
[2018-03-11 13:01] LABS: PLATELET COUNT 104 x10^3/uL (140-400)
[2018-03-11 18:24] LABS: POC GLUCOSE 178 mg/dL (70-99)
[2018-03-11 18:24] LABS: POC GLUCOSE 171 mg/dL (70-99)
[2018-03-11] MEDS: AMINO ACIDS IV (21:22)
[2018-03-11] MEDS: [UNRECOGNIZED DRUG - OTHER] IV (21:22)
[2018-03-11] MEDS: TOTAL PARENTERAL NUTRITION IV (21:22)
[2018-03-11] MEDS: DEXTROSE 70% IV (21:22)
[2018-03-11 23:44] LABS: POC GLUCOSE 206 mg/dL (70-99)
[2018-03-12] MEDS: fentaNYL PF VIAL 100 MCG/2 ML VIAL IV ×5 (02:38→23:39)
[2018-03-12] MEDS: INSULIN LISPRO 300 UNITS/3 ML INSULN.PEN. SQ ×4 (05:29→23:44)
[2018-03-12 06:01] LABS: ALBUMIN 2.5 g/dL (3.4-5.0)
[2018-03-12 06:01] LABS: ANION GAP 5 (6-14); BLOOD UREA NITROGEN 42 mg/dL (7-20); CARBON DIOXIDE 30 mmol/L (21-32); CHLORIDE 103 mmol/L (98-107); CREATININE 0.9 mg/dL (0.6-1.0); GFR 74.3; GLUCOSE 168 mg/dL (70-99); POTASSIUM 4.2 mmol/L (3.5-5.1); SODIUM 138 mmol/L (136-145)
[2018-03-12 06:05] LABS: MAGNESIUM 2.3 mg/dL (1.8-2.4)
[2018-03-12 06:05] LABS: PHOSPHORUS 3.5 mg/dL (2.6-4.7)
[2018-03-12] MEDS: IPRATRPIUM/ALBUTEROL 0.5/2.5MG 3 ML NEBU. NEB ×4 (07:03→19:48)
[2018-03-12] MEDS: PANTOPRAZOLE IV PUSH 40 MG VIAL. IVP (08:32)
[2018-03-12] MEDS: CHLORHEXIDINE 0.12% 15 ML MOUTHWASH. MM ×2 (08:32→23:45)
[2018-03-12] MEDS: amLODIPine BESYLATE 10 MG TABLET PO (08:34)
[2018-03-12] MEDS: TPN PER PHARMACY MC (09:22)
[2018-03-12] MEDS: BISACODYL 10 MG SUPP.RECT. PR (17:16)
[2018-03-12 17:29] LABS: POC GLUCOSE 162 mg/dL (70-99)
[2018-03-12] MEDS: methylPREDNISolone SOD SUCC PF 40 MG/ML VIAL. IV (17:35)
[2018-03-12] MEDS: DEXTROSE 70% IV (21:46)
[2018-03-12] MEDS: TOTAL PARENTERAL NUTRITION IV (21:46)
[2018-03-12] MEDS: [UNRECOGNIZED DRUG - OTHER] IV (21:46)
[2018-03-12] MEDS: AMINO ACIDS IV (21:46)
[2018-03-12 23:47] LABS: POC GLUCOSE 188 mg/dL (70-99)
[2018-03-12 23:47] LABS: POC GLUCOSE 135 mg/dL (70-99)
[2018-03-13] MEDS: fentaNYL PF VIAL 100 MCG/2 ML VIAL IV ×2 (06:19→11:57)
[2018-03-13] MEDS: INSULIN LISPRO 300 UNITS/3 ML INSULN.PEN. SQ ×3 (06:20→17:11)
[2018-03-13 06:23] LABS: POC GLUCOSE 171 mg/dL (70-99)
[2018-03-13 07:01] LABS: ANION GAP 7 (6-14); BLOOD UREA NITROGEN 37 mg/dL (7-20); CALCIUM 8.8 mg/dL (8.5-10.1); CARBON DIOXIDE 31 mmol/L (21-32); CHLORIDE 103 mmol/L (98-107); CREATININE 0.9 mg/dL (0.6-1.0); GFR 74.3; GLUCOSE 171 mg/dL (70-99); PHOSPHORUS 3.6 mg/dL (2.6-4.7); POTASSIUM 4.2 mmol/L (3.5-5.1); SODIUM 141 mmol/L (136-145)
[2018-03-13] MEDS: IPRATRPIUM/ALBUTEROL 0.5/2.5MG 3 ML NEBU. NEB ×4 (08:43→19:43)
[2018-03-13] MEDS: amLODIPine BESYLATE 10 MG TABLET PO (09:00)
[2018-03-13] MEDS: CHLORHEXIDINE 0.12% 15 ML MOUTHWASH. MM ×2 (09:36→20:47)
[2018-03-13] MEDS: PANTOPRAZOLE IV PUSH 40 MG VIAL. IVP (09:36)
[2018-03-13 11:55] LABS: POC GLUCOSE 123 mg/dL (70-99)
[2018-03-13] MEDS: TPN PER PHARMACY MC (12:23)
[2018-03-13] MEDS: ACETAMINOPHEN 650 MG/20.3 ML SOLUTION. PO ×2 (13:50→20:46)
[2018-03-13] MEDS: methylPREDNISolone SOD SUCC PF 40 MG/ML VIAL. IV (17:12)
[2018-03-13 17:16] LABS: POC GLUCOSE 155 mg/dL (70-99)
[2018-03-13] MEDS: TOTAL PARENTERAL NUTRITION IV (22:16)
[2018-03-13] MEDS: [UNRECOGNIZED DRUG - OTHER] IV (22:16)
[2018-03-13] MEDS: DEXTROSE 70% IV (22:16)
[2018-03-13] MEDS: AMINO ACIDS IV (22:16)
[2018-03-13] MEDS: ONDANSETRON PF 4 MG/2 ML VIAL. IV (23:06)
[2018-03-14] MEDS: INSULIN LISPRO 300 UNITS/3 ML INSULN.PEN. SQ ×3 (00:02→11:46)
[2018-03-14 00:03] LABS: POC GLUCOSE 233 mg/dL (70-99)
[2018-03-14 05:49] LABS: PLATELET COUNT 155 x10^3/uL (140-400)
[2018-03-14 06:14] LABS: ANION GAP 7 (6-14); BLOOD UREA NITROGEN 36 mg/dL (7-20); CALCIUM 8.6 mg/dL (8.5-10.1); CARBON DIOXIDE 29 mmol/L (21-32); CHLORIDE 103 mmol/L (98-107); CREATININE 0.9 mg/dL (0.6-1.0); GFR 74.3; GLUCOSE 169 mg/dL (70-99); POTASSIUM 4.2 mmol/L (3.5-5.1); SODIUM 139 mmol/L (136-145)
[2018-03-14] MEDS: IPRATRPIUM/ALBUTEROL 0.5/2.5MG 3 ML NEBU. NEB (08:33)
[2018-03-14] MEDS: amLODIPine BESYLATE 10 MG TABLET PO (08:58)
[2018-03-14] MEDS: PANTOPRAZOLE IV PUSH 40 MG VIAL. IVP (08:58)
[2018-03-14] MEDS: CHLORHEXIDINE 0.12% 15 ML MOUTHWASH. MM (08:59)
[2018-03-14 11:47] LABS: POC GLUCOSE 134 mg/dL (70-99)
== END 2018-03-14 12:35 | DRG 4 ==
LOC: ER 04:29 → 1 WEST ICU 04:48
PROC: 0B110F4 Bypass Trachea to Cutaneous with Tracheostomy Device, Open Approach (ICD-10-PCS; 2018-03-08 09:30)
PROC: 5A1945Z Respiratory Ventilation, 24-96 Consecutive Hours (ICD-10-PCS; principal; 2018-03-08 10:03)
PROC: 0BH17EZ Insertion of Endotracheal Airway into Trachea, Via Natural or Artificial Opening (ICD-10-PCS; 2018-03-08 10:03)
PROC: 5A09457 Assistance with Respiratory Ventilation, 24-96 Consecutive Hours, Continuous Positive Airway Pressure (ICD-10-PCS; 2018-03-08 10:03)
PROC: 5A1955Z Respiratory Ventilation, Greater than 96 Consecutive Hours (ICD-10-PCS; 2018-03-08 10:03)
PROC: 0BH17EZ Insertion of Endotracheal Airway into Trachea, Via Natural or Artificial Opening (ICD-10-PCS; 2018-03-08 10:03)
PROC: 5A09357 Assistance with Respiratory Ventilation, Less than 24 Consecutive Hours, Continuous Positive Airway Pressure (ICD-10-PCS; 2018-03-08 10:03)
PROC: 5A09357 Assistance with Respiratory Ventilation, Less than 24 Consecutive Hours, Continuous Positive Airway Pressure (ICD-10-PCS; 2018-03-08 10:03)
DX: J96.21 Acute and chronic respiratory failure with hypoxia (principal); I50.33 Acute on chronic diastolic (congestive) heart failure; J18.9 Pneumonia, unspecified organism; E87.0 Hyperosmolality and hypernatremia; E87.2 Acidosis; J44.0 Chronic obstructive pulmonary disease with (acute) lower respiratory infection; J44.1 Chronic obstructive pulmonary disease with (acute) exacerbation; Z68.44 Body mass index [BMI] 60.0-69.9, adult; N17.9 Acute kidney failure, unspecified; K56.7 Ileus, unspecified; J96.22 Acute and chronic respiratory failure with hypercapnia; D69.6 Thrombocytopenia, unspecified; E66.01 Morbid (severe) obesity due to excess calories; E87.6 Hypokalemia; F17.201 Nicotine dependence, unspecified, in remission; G47.33 Obstructive sleep apnea (adult) (pediatric); I11.0 Hypertensive heart disease with heart failure; I27.81 Cor pulmonale (chronic); I35.0 Nonrheumatic aortic (valve) stenosis; I87.2 Venous insufficiency (chronic) (peripheral); I89.0 Lymphedema, not elsewhere classified; I95.81 Postprocedural hypotension; R94.31 Abnormal electrocardiogram [ECG] [EKG]; K21.9 Gastro-esophageal reflux disease without esophagitis; Z99.81 Dependence on supplemental oxygen; Z90.49 Acquired absence of other specified parts of digestive tract
CPT/HCPCS: 36415; 36569; 36600; 51702; 71045; 74018; 80048; 80053; 81001; 82040; 82805; 82962; 83605; 83735; 83880; 84100; 84145; 84478; 84484; 85007; 85025; 85027; 85049; 85610; 86738; 87040; 87070; 87205; 87449; 87641; 93005; 93306; 93970; 94002; 94003; 94640; 94660; 96374; 96375; 97163-GP; 97167-GO; 97530-GP; 99285-25; C9113; J0330; J0360; J0610; J1650; J1815; J1940; J1956; J2060; J2250; J2405; J2543; J2704; J2920; J2930; J3010; J3475; J7030; J7120; J7613; J7620

== ENCOUNTER 2021-08-26 12:38 | Emergency (ER) | payer OTHER ==
[~2021-08-26] VITALS: Ht 167.6 cm; Wt 127.2 kg
[~2021-08-26 12:38] MED LIST: ACET325T9 PO; AMLO-187 PO; CEFE1VIA2 IV; ENOX40DI SQ; FAMO-63 PO; FENT50VI6 IVP; FLUC100T4 PO; FURO40TA4 PO; FURO80TA3 PO; HYDR-2867 IV; LORA0.5T96 PO; MINE120C TP; MIRT-7 PO; NYST15PO9 TP; ONDA4TAB7 IVP; ZOLP5TAB5 PO
--- NOTE | 2021-08-26 13:53 | RAD ---
EXAM: CHEST ONE VIEW. HISTORY: Tracheostomy placement. COMPARISON: 03/27/2018. FINDINGS: A frontal view of the chest is obtained. The tracheostomy device has been revised. It proje cts over the trachea, but has its tip at the thoracic inlet. The inspiration is small with mild elevation of the right hemidiaphragm. Bibasilar atelectasis or mil d infiltrates are similar to the prior study. There is no pneumothorax or clear pleural effusion. The heart is not enlarged. IMPRESSION: 1. The tracheostomy device has its tip at the thoracic inlet. Confirm with desired placement. 2. Small inspiration with bibasilar atelectasis or stable multifocal infiltrates. Electronically signed by: Irma Thompson MD (08/26/2021 1:50 PM) [id number]
[2021-08-26 14:19] LABS: BASE EXCESS ABG 6 mmol/L (-3-3); HCO3 ABG 33 mmol/L (21-28); PO2 ABG 132 mmHg (65-108); SAT O2 ABG 98 % (92-99)
[2021-08-26 14:25] LABS: FIO2 ABG 40; PCO2 ABG 63 mmHg (35-46)
--- NOTE | 2021-08-26 14:44 | PHYS DOC ---
Past Medical History Past Medical History: Asthma, Hypertension, Other Additional Past Medical Histor: SLEEP APNEA,ACUTE/CHRONIC RESP FAILURE,OBESITY,DYSPHAGIA,APHONIA Past Surgical History: Other Additional Past Surgical Histo: TRACHEOSTOMY Smoking Status: Former Smoker Alcohol Use: None Drug Use: None General Adult EDM: Chief Complaint: OTHER COMPLAINTS HPI: HPI: 76 yo F presents to the ED via [facility] from [facility] [place], complains of a clogged trach tube and concern for possible dislodgment. EMS reported pt requested to be taken here to [facility] and that patient does not like her cuff of her [place] trach tube inflated. Nursing facility had suctioned a small amount of mucous prior to transfer. EMS brought a backup shiley trach that the facility had in stock. Review of Systems: Review of Systems: Constitutional: Denies fever or chills. [] Eyes: Denies change in visual acuity. [] HENT: Denies nasal congestion or sore throat. [] Respiratory: Denies cough or hemoptysis Cardiovascular: Denies chest pain or edema. [] GI: Denies nausea or vomiting : Denies dysuria or hematuria Musculoskeletal: Denies back pain or joint pain. [] Integument: Denies rash or diaphoresis Neurologic: Denies headache, focal weakness or sensory changes. [] Endocrine: Denies polyuria or polydipsia. [] Lymphatic: Denies swollen glands. [] Psychiatric: Denies depression or anxiety. [] Heart Score: C/O Chest Pain: No Risk Factors: Risk Factors: DM, Current or recent (<one month) smoker, HTN, HLP, family history of CAD, obesity. Risk Scores: Score 0 - 3: 2.5% MACE over next 6 weeks - Discharge Home Score 4 - 6: 20.3% MACE over next 6 weeks - Admit for Clinical Observation Score 7 - 10: 72.7% MACE over next 6 weeks - Early Invasive Strategies Allergies: Allergies: Allergies Coded Allergies Type Severity Reaction Last Updated Verified No Known Drug Allergies 04/27/18 No Physical Exam: PE: Constitutional: Well developed, well nourished, no acute distress, non-toxic appearance. HENT: Normocephalic, atraumatic, Eyes: EOMI, conjunctiva normal, no discharge. Neck: Normal range of motion, supple, Cardiovascular: S1/2 present, regular rhythm Lungs & Thorax: Speaking in full sentences, bilateral equal chest rise, no tachypnea or increased work of breathing, bilateral breath sounds, trach inserted by RT w/balloon dilated with saline Abdomen: soft, no tenderness, obese Skin: Warm, dry, no erythema, no rash. [] Extremities: No tenderness, no cyanosis, Neurologic: Alert and oriented X 3, no focal deficits noted. [] Psychologic: Affect normal, judgement normal, mood normal. [] Current Patient Data: Labs: Laboratory Tests Test 08/26/21 14:10 O2 Saturation 98 % (92-99) Arterial Blood pH 7.34 (7.35-7.45) L Arterial Blood pCO2 at Patient Temp 63 mmHg (35-46) *H Arterial Blood pO2 at Patient Temp 132 mmHg (65-108) H Arterial Blood HCO3 33 mmol/L (21-28) H Arterial Blood Base Excess 6 mmol/L (-3-3) H FiO2 40 Vital Signs: Vital Signs Date Time Temp Pulse Resp B/P (MAP) Pulse Ox O2 Delivery O2 Flow Rate FiO2 08/26/21 12:50 100 Ventilator 08/26/21 12:38 98.3 113 24 149/87 (107) 98.3 EKG: EKG: [] Radiology/Procedures: Radiology/Procedures: IMAGING REPORT Signed PATIENT: SEVEN MARTINEZACCOUNT: [id number] : 1945 LOCATION: ER AGE: 76 SEX: F EXAM STATUS: PRE ER ORD. PHYSICIAN: EM STEVEN DO REASON: TRACH PLACEMENT PROCEDURE: PORTABLE CHEST 1V EXAM: CHEST ONE VIEW. HISTORY: Tracheostomy placement. COMPARISON: 03/27/2018. FINDINGS: A frontal view of the chest is obtained. The tracheostomy device has been revised. It projects over the trachea, but has its tip at the thoracic inlet. The inspiration is small with mild elevation of the right hemidiaphragm. Bibasilar atelectasis or mild infiltrates are similar to the prior study. There is no pneumothorax or clear pleural effusion. The heart is not enlarged. IMPRESSION: 1. The tracheostomy device has its tip at the thoracic inlet. Confirm with desired placement. 2. Small inspiration with bibasilar atelectasis or stable multifocal infiltrates. Electronically signed by: Irma Thompson MD (08/26/2021 1:50 PM) [id number] DICTATED and SIGNED BY: TERA THOMPSON MD DATE: 08/26/21 [id number] IMAGING REPORT Signed PATIENT: SEVEN MARTINEZACCOUNT: [id number] : 1945 LOCATION: ER AGE: 76 SEX: F EXAM STATUS: REG ER ORD. PHYSICIAN: EM STEVEN DO REASON: trach replaced PROCEDURE: CT CHEST WO CONTRAST Exam: CT of chest without contrast INDICATION: Tracheostomy replaced TECHNIQUE: Sequential axial images through the chest obtained without IV contrast. Sagittal and coronal reformatted images were reconstructed from the axial data and reviewed. Exposure: One or more of the following in the visualized dose reduction techniques were utilized for this examination: 1. Automated exposure control 2. Adjustment of the MA and/or KV according to patient size 3. Use of iterative of reconstructive technique Comparisons: Chest x-ray same day FINDINGS: Visualized portions of the thyroid are unremarkable. No enlarged mediastinal lymph nodes are identified. Heart size is normal. No pericardial effusion. Thoracic aorta has normal course and caliber. Pulmonary artery is not enlarged. Airways are patent. There is a tracheostomy tube with tip in the trachea. Stra ndy opacities at dependent portion lungs likely representing atelectasis. No suspicious lung nodules. No pleural effusion or thickening. Visualized upper abdomen is unremarkable. No suspicious osseous lesions or acute fractures. IMPRESSION: 1. Tracheostomy with tube tip in the trachea. 2. Strandy opacities the dependent portion lungs likely representing atelectasis Electronically signed by: Austin Michael MD (08/26/2021 3:51 PM) UI-[facility]ARK DICTATED and SIGNED BY: AUSTIN MICHAEL MD DATE: 08/26/21 [id number] 0 Course & Med Decision Making: Course & Med Decision Making Pertinent Labs and Imaging studies reviewed. (See chart for details) Concern for trach dislodgment-replaced by RT. Blood gas with no hypoxia. Patient has been resting comfortably in the emergency department, 100% on pulse ox. Is in no respiratory distress. Will discharge home with strict ED return precautions were given for hypoxia, increased work of breathing or fever. Encouraged urgent outpatient follow-up with PMD and definitive management of trach via [place] operator. Life-threatening processes were considered but are low suspicion at this time, given history, physical exam and ED workup. Pt was educated on all prescription medications and adverse effects. All patient's questions were answered and pt was stable at time of discharge. Life/limb-threatening differential includes but is not limited to, ACS, dysrhythmia, pneumothorax or hemothorax, pulmonary embolus, pneumonia, bronchoconstriction, pulmonary edema, angioedema, epiglottitis, tracheitis, Erasto's angina, RPA/FORESTRY TECHNICIAN, anaphylaxis, angioedema, cardiac tamponade or murmurs, pericarditis, myocarditis, poisoning or toxicity, sepsis or autoimmune/neurologic disease. I have spoken with the patient and/or caregivers. I explained the patient's condition, diagnoses and treatment plan based on the information available to me at this time. I have answered the patient and/or caregiver's questions and addressed any concerns. The patient and/or caregivers have a good understanding of patient's diagnosis, condition and treatment plan as can be expected at this point. Vital signs have been stable. Patient's condition is stable and appropriate for discharge from the emergency department. Patient will pursue further outpatient evaluation with primary care physician or other designated or consulting physician as outlined in the discharge instructions. The patient and/or caregivers are agreeable to this plan of care and follow-up instructions have been explained in detail. The patient and/or caregivers have received these instructions in written form and have expressed an understanding of the discharge instructions. The patient and/or caregivers are aware that any significant change of condition or worsening of symptoms should prompt immediate return to this or the closest emergency department or call to 911. Martita Disclaimer: Martita Disclaimer: This electronic medical record was generated, in whole or in part, using a voice recognition dictation system. Departure Departure Impression: Primary Impression: Tracheostomy complication Disposition: HOME / SELF CARE / HOMELESS Condition: STABLE Referrals: KOBE MORRIS (PCP) Follow-up with your primary care physician in 24 to 48 hours OR FOLLOW UP WITH FAMILY MEDICINE: [address] [place] [address] Patient Instructions: Care of a Tracheostomy Tube, How to Suction a Tracheostomy Additional Instructions: FOLLOW UP WITH PULMONOLOGY: FOR DEFINITIVE MANAGEMENT of tracheostomy [facility] [address] [place] [address] EMERGENCY DEPARTMENT GENERAL DISCHARGE INSTRUCTIONS Thank you for coming to [facility] Emergency Department (ED) today and trusting us with you care. We trust that you had a positive experience in our Emergency Department. If you wish to speak to the department management, you may call the Director at [phone]. YOUR FOLLOW UP INSTRUCTIONS ARE FOLLOWS: 1. Do you have a private Doctor? If you do not have a private doctor, please ask for a resource list of physicians or clinics that may be able to assist you with follow up care. 2. The Emergency Physicain has interpreted your x-rays. The X-Ray specialist will also review them. If there is a change in the findings, you will be notified in 48 hours when at all possible. 3. A lab test or culture has been done, your results will be reviewed and you will be notified if you need a change in treatment. ADDITIONAL INSTRUCTIONS AND INFORMATION: 1. Your care today has been supervised by a physician who is specially trained in emergency care. Many problems require more than one evaluation for a complete diagnosis and treatment. We recommend that you schedule your follow up appointment as recommended to ensure complete treatment of you illness or injury. If you are unable to obtain follow up care and continue to have a problem, or if your condition worsens, we recommend that you return to the ED. 2. We are not able to safely determine your condition over the phone nor are we able to give sound medical advice over the phone. For these safety reasons, if you call for medical advice we will ask you to come to the ED for further evaluation. 3. If you have any questions regarding these discharge instructions please call the ED at [phone]. SAFETY INFORMATION: In the interest of safety, wellness, and injury prevention; we encourage you to wear your sealbelt, if you smoke; quite smoking, and we encourage family to use a protective helmet for bicycling and other sporting events that present an increased risk for head injury. IF YOUR SYMPTOMS WORSEN OR NEW SYMPTOMS DEVELOP, OR YOU HAVE CONCERNS ABOUT YOUR CONDITION; OR IF YOUR CONDITION WORSENS WHILE YOU ARE WAITING FOR YOUR FOLLOW UP APPOINTMENT; EITHER CONTACT YOUR PRIMARY CARE DOCTOR, THE PHYSICIAN WHOSE NAME AND NUMBER YOU WERE GIVEN, OR RETURN TO THE ED IMMEDIATELY. EM LOUIE DO Aug 26, 2021 14:44
--- NOTE | 2021-08-26 15:54 | RAD ---
Exam: CT of chest without contrast INDICATION: Tracheostomy replaced TECHNIQUE: Sequential axial images through the chest obtained without IV contrast. Sagittal and coron al reformatted images were reconstructed from the axial data and reviewed. Exposure: One or more of the following in the visualized dose reduction techniques were utilized for this examination: 1. Automated exposure control 2. Adjustment of the MA and/or KV according to patient size 3. Use of iterative of reconstructive technique Comparisons: Chest x-ray same day FINDINGS: Visualized portions of the thyroid are unremarkable. No enlarged mediastinal lymph nodes are identifi ed. Heart size is normal. No pericardial effusion. Thoracic aorta has normal course and caliber. Pulmonar y artery is not enlarged. Airways are patent. There is a tracheostomy tube with tip in the trachea. Strandy opacities at depend ent portion lungs likely representing atelectasis. No suspicious lung nodules. No pleural effusion or thickening. Visualized upper abdomen is unremarkable. No suspicious osseous lesions or acute fractures. IMPRESSION: 1. Tracheostomy with tube tip in the trachea. 2. Strandy opacities the dependent portion lungs likely representing atelectasis Electronically signed by: Austin Beasley MD (08/26/2021 3:51 PM) [facility]
[2021-08-26 17:50] VITALS: BP 126/74
== END 2021-08-26 18:07 | disposition home or self-care (01) ==
LOC: ER 12:38
DX: J95.03 Malfunction of tracheostomy stoma (principal); J45.909 Unspecified asthma, uncomplicated; I10 Essential (primary) hypertension
CPT/HCPCS: 31502; 36600; 71045; 71250; 82805; 94002; 99285-25